=== PATIENT | female | born 2000 | race Two or more races ===

== ENCOUNTER 2022-09-25 19:44 | Observation (INO) | payer OTHER ==
[~2022-09-25] VITALS: Ht 165.1 cm; Wt 86.2 kg
[2022-09-25 20:22] LABS: Basophils # (auto) 0.1 10 ^3/uL (0-0.2); Basophils % (auto) 0.6 % (0.0-2.0); Eosinophils # (auto) 0.3 10 ^3/uL (0-0.8); Eosinophils % (auto) 3.2 % (0.0-7.0); Hematocrit 33.6 % (36.0-46.0); Hemoglobin 11.1 g/dL (12.2-16.2); Lymphocytes # (auto) 2.2 10 ^3/uL (0.4-5.4); Lymphocytes % (auto) 22.2 % (10.0-50.0); Mean Corpuscular Hemoglobin 28.2 pg (28.0-32.0); Mean Corpuscular Hgb Conc. 33.1 g/dL (32.0-36.0); Mean Corpuscular Volume 85.2 fL (80.0-100.0); Monocytes # (auto) 0.4 10 ^3/uL (0-1.3); Red Blood Cells 3.94 10^6/uL (4.0-5.20)
[2022-09-25 20:38] LABS: Albumin 2.9 g/dL (3.4-5.0); Calcium 8.3 mg/dL (8.5-10.1); INR 0.98 (0.9-1.15); Partial Thromboplastin Time 26.2 sec (24.6-33.4); Uric Acid 3.3 mg/dL (2.6-6.0)
[2022-09-25 20:41] LABS: BUN/Creatinine Ratio 13.1; Bilirubin, Total 0.1 mg/dL (0.2-1.0); Total Protein 6.7 g/dL (6.4-8.2)
[2022-09-25 21:32] LABS: Urine Bacteria NONE SEEN /hpf (None Seen); Urine Blood Negative /uL (Negative); Urine Mucus FEW (None Seen); Urine WBC 8 /hpf (0 - 5)
[2022-09-25 21:39] LABS: Alcohol, Urine < 3.0 mg/dL (0-10); Amphetamine Screen, Urine NEGATIVE (NEGATIVE); Barbiturate Scree,Urine NEGATIVE (NEGATIVE); Benzodiazephine Screen, Urine NEGATIVE (NEGATIVE); Cannabinoid Screen, Urine NEGATIVE (NEGATIVE); Cocaine Screen, Urine NEGATIVE (NEGATIVE); Opiate Scree,Urine NEGATIVE (NEGATIVE); Phencyclidine Screen, Urine NEGATIVE (NEGATIVE)
[2022-09-25] MEDS ORDERED: PREN-96 PO (22:05)
[2022-09-27 06:06] LABS: RPR Non Reactive (Non Reactive); Rubella Antibodies, IgG 1.83 index (Immune >0.99)
== END 2022-09-25 22:24 | disposition home or self-care (01) ==
LOC: LDRP 19:44
PROVIDERS: ADMIT Obstetrics & Gynecology; ATTEND Obstetrics & Gynecology
DX: O23.43 Unspecified infection of urinary tract in pregnancy, third trimester (principal); N39.0 Urinary tract infection, site not specified; O26.893 Other specified pregnancy related conditions, third trimester; R10.9 Unspecified abdominal pain; O26.853 Spotting complicating pregnancy, third trimester; Z3A.29 29 weeks gestation of pregnancy; Z79.899 Other long term (current) drug therapy
CPT/HCPCS: 36415; 59025; 76805; 80053; 80307; 81001; 84550; 85025; 85610; 85730; 86592; 86703; 86762; 86850; 86900; 86901; 87340; 94760; G0378

== ENCOUNTER → 2022-09-25 | Emergency (ER) | payer OTHER ==
[~2022-09-25] MED LIST: PREN-96 PO
== END | disposition left against medical advice (07) ==
LOC: ER 19:20
DX: R10.9 Unspecified abdominal pain (principal); Z53.21 Procedure and treatment not carried out due to patient leaving prior to being seen by health care provider